=== PATIENT | male | born 1960 | race Caucasian/White ===

== ENCOUNTER 2023-01-27 12:16 | Emergency (ER) | payer BC | END 2023-01-27 13:20 | disposition home or self-care (01) | LOC: DL.ED 12:16 | DX: S92.415A Nondisplaced fracture of proximal phalanx of left great toe, initial encounter for closed fracture (principal); J45.909 Unspecified asthma, uncomplicated; Z79.51 Long term (current) use of inhaled steroids; W07.XXXA Fall from chair, initial encounter | CPT/HCPCS: 73660-RT; 99282; 99283 ==